=== PATIENT | male | born 1995 | race Caucasian/White ===

== ENCOUNTER 2023-05-16 10:09 | Emergency (ER) | payer MEDICAID ==
[~2023-05-16] VITALS: Ht 188 cm; Wt 104.5 kg
[2023-05-16 10:16] VITALS: BP 125/89; PULSE 80; RESP 18; TEMP 97.9
[2023-05-16] MEDS ORDERED: IBUPROFEN 600 MG TABLET PO ONE (10:30)
[2023-05-16] MEDS ORDERED: ACETAMINOPHEN 500 MG TABLET PO ONE (10:30)
[2023-05-16] MEDS ORDERED: ACET-3385 PO (11:24)
[2023-05-16] MEDS ORDERED: IBUP-1492 PO (11:24)
== END 2023-05-16 11:25 | disposition home or self-care (01) ==
LOC: EMS 10:10
DX: S60.211A Contusion of right wrist, initial encounter (principal); V89.2XXA Person injured in unspecified motor-vehicle accident, traffic, initial encounter; Y93.89 Activity, other specified; Y92.89 Other specified places as the place of occurrence of the external cause; Y99.8 Other external cause status
CPT/HCPCS: 99284; 73110-TC; 73130-TC; Z7502; Z7610